=== PATIENT | female | born 1930 | race Caucasian/White ===

== ENCOUNTER 2019-08-14 22:58 | Inpatient (IN) ==
[2019-08-14] MEDS ORDERED: IOPAMIDOL 100 ML BOTTLE IV ONE (22:59)
[2019-08-14] MEDS ORDERED: ONDANSETRON 4 MG/2 ML VIAL IV ONE (23:27)
[2019-08-14] MEDS ORDERED: LACTATED RINGERS 1,000 ML IV ONE (23:27)
[2019-08-14] MEDS ORDERED: HYDROmorphone 2 MG/ML VIAL IV PRN (23:27)
[2019-08-15 00:32] LABS: Basophils # (Auto) 0.1 K/mcL (0.0-0.3); Basophils % (Auto) 0.7 % (0.0-2.0); Eosinophils # (Auto) 0.2 K/mcL (0.0-0.7); Eosinophils % (Auto) 1.8 % (0.0-7.0); Hematocrit 39.1 % (36.0-48.0); Lymphocytes # (Auto) 1.6 K/mcL (1.5-4.8); Lymphocytes % (Auto) 14.8 % (15.5-49.0); Mean Cell Volume 91.1 fL (80.0-100.0); Mean Corpuscular HGB Conc 33.4 g/dL (31.0-36.0); Mean Platelet Volume 9.9 fL (7.4-10.4); Monocytes # (Auto) 0.8 K/mcL (0.1-0.9); Monocytes % (Auto) 7.7 % (1.0-12.0); Platelet Count 189 K/mcL (140-440); RBC 4.29 M/mcL (4.00-5.20); Red Cell Distribution Width 13.9 % (11.5-14.5); WBC 10.5 K/mcL (4.5-11.0)
[2019-08-15 00:52] LABS: ALT/SGPT 8 U/l (0-40); AST/SGOT 16 U/l (0-37); Albumin 3.9 gm/dL (3.2-5.2); Albumin/Globulin Ratio 1.2 (1.0-2.3); Alkaline Phosphatase 77 U/L (39-117); Bilirubin,Total 0.3 mg/dL (0.0-1.0); Blood Urea Nitrogen 22 mg/dl (8-23); Calcium 9.5 mg/dl (8.6-10.4); Carbon Dioxide 22 mmol/L (22-30); Chloride 106 mmol/L (96-108); Globulin 3.2 gm/dL (2.2-3.7); Glomerular Filtration Rate 66; Glucose 232 mg/dL (70-105)
[2019-08-15] MEDS ORDERED: ONDANSETRON 4 MG/2 ML VIAL IV ONE (02:40)
[2019-08-15 03:02] LABS: Appearance,Urine CLEAR; Bilirubin,Urine NEG (NEG); Color,Urine YELLOW; Culture Indicated,Urine NO; Glucose,Urine (UA) NEGATIVE (NEG); Ketones,Urine 5/TR mg/dL (NEG); Leukocyte Esterase,Urine NEG /uL (NEG); Nitrate,Urine NEG (NEG); Protein,Urine NEG (NEG); Specific Gravity,Urine 1.051 (1.000-1.035); Urine Blood NEG mg/dL (<0.03); Urobilinogen,Urine NEG (NEG)
[2019-08-15] MEDS ORDERED: ONDANSETRON 4 MG/2 ML VIAL IV PRN (04:00)
[2019-08-15] MEDS ORDERED: PROMETHAZINE 25 MG/ML VIAL IV PRN (04:00)
[2019-08-15] MEDS ORDERED: PROMETHAZINE 25 MG/ML VIAL ONE (04:10)
[2019-08-15] MEDS: 0.9 % SODIUM CHLORIDE 1,000 ML IV SCH ×3 (04:15→21:09)
--- NOTE | 2019-08-15 06:58 | Emergency Department Note ---
Abdominal Pain HPI - General Chief Complaint: Abdominal Pain Stated Complaint: ABD. PAIN Time Seen by Provider: 08/14/19 23:24 Mode of arrival: ambulatory - History of Present Illness HPI Narrative: This patient has had some mild abdominal pain with some nausea vomiting developed this evening. She has had previous small bowel obstructions due to adhesions. - Related Data Home Medications Medication Instructions Recorded Confirmed aspirin 81 mg tablet,delayed 81 mg PO QDAY tab 05/15/15 08/15/19 release multivitamin,ia-[id number]-qnysvhhb 1 tab PO QDAY tab 06/19/15 08/15/19 vit C 250 mg-E 200 unit-zinc 40 1 tab PO BID 04/29/17 08/15/19 mg-copper 1 li-hcdglr-juwqrt capsule Previous Rx's Medication Instructions Recorded lancets See Dose Instructions .ROUTE 02/27/16 .MEDSUPPLY #100 each blood sugar diagnostic See Dose Instructions .ROUTE 01/11/18 .MEDSUPPLY #100 each sumatriptan succinate 50 mg tablet See Rx Instructions PO .COMPLEX 01/11/19 #20 tab glipizide 5 mg tablet 5 mg PO BID #180 tab 03/22/19 losartan 25 mg tablet 25 mg PO QDAY #90 tab 03/22/19 simvastatin 5 mg tablet 5 mg PO QPM #90 tab 03/22/19 Allergies Allergy/AdvReac Type Severity Reaction Status Date / Time No Known Allergies Allergy none Verified 08/15/19 03:17 Review of Systems All systems ED: reviewed and negative except as stated. 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) Cervical cancer (Chronic) Dizziness (Resolved) Pain of toe (Resolved) Bowel obstruction (Inactive) Fall (Inactive) Past Surgical History (Last Reviewed 07/14/19 @ 10:12 by Mayda Cruz DO) H/O abdominal hysterectomy (Acute) History of cataract surgery (Inactive) History of cholecystectomy (Inactive) History of hernia repair (Inactive) History of hip surgery (Inactive) History of tonsillectomy (Inactive) S/P FLORENTINO-BSO (Inactive) Family History (Last Reviewed 07/14/19 @ 10:12 by Mayda Cruz DO) Mother Malignant neoplasm of uterus Unknown Essential hypertension - Social History Smoking status: Never smoker Physical Exam Limitations: no limitations General appearance: alert Head: atraumatic Eye: Present: normal appearance ENT: Present: normal exam Neck: Present: normal inspection Chest: Present: normal inspection Respiratory: Present: normal lung sounds bilaterally Cardiovascular: Present: regular rate, normal rhythm, normal heart sounds Abdominal: Present: soft, tenderness, normal bowel sounds. Absent: distention, guarding, rebound, rigidity Neurological: Present: alert Psychiatric: Present: normal affect Skin: Present: warm, dry Course Vital Signs Temperature 97.7 F 08/14/19 22:58 Pulse Rate 73 08/14/19 22:58 Respiratory Rate 18 08/14/19 22:58 Blood Pressure 188/84 08/14/19 22:58 Pulse Oximetry (%) 98 08/14/19 22:58 Temperature 97.4 F 08/15/19 04:00 Pulse Rate 89 08/15/19 04:00 Respiratory Rate 20 08/15/19 04:00 Blood Pressure 188/82 08/15/19 04:00 Pulse Oximetry (%) 92 08/15/19 04:00 Abdominal Pain - MDM Narrative Medical decision making narrative: CT scan consistent with a partial small bowel obstruction and so the patient will be admitted to the hospital by Dr. De Paz with an NG tube placed. - Lab Data Lab results reviewed: Yes I reviewed the patient's lab results. Result diagrams: 08/14/19 23:27 08/14/19 23:27 Lab Results 08/14/19 08/14/19 08/15/19 Range/Units 23:27 23:27 02:30 WBC 10.5 (4.5-11.0) K/mcL RBC 4.29 (4.00-5.20) M/mcL Hgb 13.0 (12.0-15.0) g/dL Hct 39.1 (36.0-48.0) % MCV 91.1 (80.0-100.0) fL MCH 30.4 (26.0-34.0) pg MCHC 33.4 (31.0-36.0) g/dL RDW 13.9 (11.5-14.5) % Plt Count 189 (140-440) K/mcL MPV 9.9 (7.4-10.4) fL Gran % 75.0 (38.0-78.0) % Lymph % (Auto) 14.8 L (15.5-49.0) % [place] % (Auto) 7.7 (1.0-12.0) % Eos % (Auto) 1.8 (0.0-7.0) % Baso % (Auto) 0.7 (0.0-2.0) % Gran # 7.9 (1.8-8.0) K/mcL Lymph # (Auto) 1.6 (1.5-4.8) K/mcL [place] # (Auto) 0.8 (0.1-0.9) K/mcL Eos # (Auto) 0.2 (0.0-0.7) K/mcL Baso # (Auto) 0.1 (0.0-0.3) K/mcL Sodium 142 (133-145) mmol/L Potassium 4.2 (3.3-5.1) mmol/L Chloride 106 (96-108) mmol/L Carbon Dioxide 22 (22-30) mmol/L Anion Gap 14.0 (8-16) BUN 22 (8-23) mg/dl Creatinine 0.8 (0.6-1.1) mg/dl GFR Calculation 66 Glucose 232 H (70-105) mg/dL Calcium 9.5 (8.6-10.4) mg/dl Total Bilirubin 0.3 (0.0-1.0) mg/dL AST 16 (0-37) U/l ALT 8 (0-40) U/l Alkaline Phosphatase 77 (39-117) U/L Total Protein 7.1 (5.9-8.4) gm/dL Albumin 3.9 (3.2-5.2) gm/dL Globulin 3.2 (2.2-3.7) gm/dL Albumin/Globulin Ratio 1.2 (1.0-2.3) Lipase 51 (7-60) U/L Urine Color Yellow Urine Appearance Clear Urine pH 5.0 (5.0-9.0) Ur Specific [place] 1.051 H (1.000-1.035) Urine Protein Neg (NEG) mg/dL Urine Glucose (UA) Negative (NEG) mg/dL Urine Ketones 5/tr A (NEG) mg/dL Urine Occult Blood Neg (<0.03) mg/dL Urine Nitrate Neg (NEG) Urine Bilirubin Neg (NEG) mg/dL Urine Urobilinogen Neg (NEG) mg/dL Ur Leukocyte Esterase Neg (NEG) /uL Ur Culture Indicated? No - Radiology Data Radiology results reviewed: Yes I reviewed the patient's radiology results. Disposition Pt seen by TRANSFUSION NURSE/PA only: No Clinical Impression: Small bowel obstruction Disposition: Xfer As Inpt ([facility]) Condition: Undetermined
--- NOTE | 2019-08-15 08:06 | Cat Scan Report ---
History: Diffuse abdominal pain with nausea and vomiting, prior history of cervical cancer TECHNIQUE: The abdomen and pelvis were imaged following intravenous but no oral contrast from the diaphragm to the symphysis pubis. Sagittal and coronal reformats were created. Radiation exposure was limited using dose reduction technology. FINDINGS: There are a few thin bands of discoid atelectasis or scar in both lung bases. Moderate amount calcified plaque is present in the coronary arteries. Heart size is within normal limits. There is a large retrocardiac hiatus hernia with an air-fluid level. The liver and spleen are normal in size and homogeneous. There is mild dilatation of both intra and extrahepatic bile ducts. Proximal common bile duct measures 10 mm and above the ampulla it measures 6 mm. There is no evidence of a stone or mass in or adjacent to the distal common bile duct. There are clips in the gallbladder fossa. There is atrophy of the pancreas. Along the posterior aspect of the body the pancreas near the neck there is a lobulated cyst which measures 6 x 11 mm. No solid components are seen. This is either two adjacent cysts or a bilobed cyst. It has benign features. Pancreatic duct is nondilated and no solid mass is seen in the pancreas. The adrenals are normal. The kidneys are normal in size shape and contour. There are calcified plaques in the renal arteries. No kidney stone is seen and there is no hydronephrosis. There is moderate amount of calcified plaque in the abdominal aorta and iliac arteries. The aorta is normal in caliber. There are multiple loops of fluid-filled small bowel in the midabdomen and upper pelvis. They measure up to 3.2 cm in greatest dimension. The mid and distal ileum are decompressed. There is an ill-defined transition point adjacent to the anterior peritoneal surface in the mid abdomen. This is site where patient had a prior ventral hernia repair. I suspect there is an adhesion causing a low-grade small bowel obstruction. There is no reoccurrence of the hernia. The colon is decompressed. Uterus and ovaries have been resected and there are clips in the lower pelvis. No pelvic mass or adenopathy are present. A trace amount of ascites is present deep in the pelvis. Bone windows show no lytic or blastic metastasis. There are degenerative changes in the thoracic spine with the greatest degeneration at L4-5. Patient has a right metal hip prosthesis. Urinary bladder is decompressed. IMPRESSION: Partial small bowel obstruction which may be due to adhesions where the small bowel abuts the mesh in the anterior abdominal wall. Large hiatus hernia Dilated bile ducts. This may be a reservoir effect following prior cholecystectomy or stricture at the ampulla. Interpreted and Authenticated by: Arie Irizarry 08/15/19
--- NOTE | 2019-08-15 08:08 | XRay Report ---
HISTORY: Nasogastric tube insertion for small bowel obstruction FINDINGS: There is nasogastric tube which passes through the large hiatus hernia into the body of the stomach. There still a moderate amount of gas within the stomach. Small bowel does not appear distended. However, most of the small bowel was fluid-filled on the preceding CT scan. There is contrast within the collecting systems in both kidneys and bladder following the preceding CT scan. IMPRESSION: Improved gastric distention following nasogastric tube insertion Interpreted and Authenticated by: Arie Irizarry 08/15/19
[2019-08-15] MEDS: INSULIN LISPRO 1 UNIT/0.01 ML UNIT SQ SCH ×4 (09:05→23:35)
[2019-08-15] MEDS ORDERED: DIATRIZOATE MEGLU/DIATRIZO SOD 30 ML BOTTLE PO ONE (11:15)
--- NOTE | 2019-08-15 11:29 | XRay Report ---
HISTORY: Small bowel obstruction FINDINGS: Patient was given 660 mL of Gastrografin which have been diluted 50% with water. This was administered through the indwelling nasogastric tube. Images were acquired 10 minutes and 30 minutes following the Gastrografin. After this fluoroscopy was performed using one minute three seconds of fluoroscopy time. The contrast passed rapidly through the stomach and small intestine. By 45 minutes the contrast had reached the proximal descending colon. The small intestine is normal in caliber and there is normal peristalsis. There is no evidence of mass or inflammatory change. No transition point is seen. The small bowel is smaller in caliber today than it was on the CT scan performed yesterday. IMPRESSION: Resolved small bowel obstruction Interpreted and Authenticated by: Arie Irizarry 08/15/19
[2019-08-15] MEDS ORDERED: INSULIN LISPRO 1 UNIT/0.01 ML UNIT SQ SCH (12:00)
[2019-08-15] MEDS: METOCLOPRAMIDE 10 MG/2 ML VIAL IV SCH ×3 (12:47→23:31)
--- NOTE | 2019-08-15 12:53 | General Surg History&Physical ---
History of Present Illness Patient information: Note initiated : 08/15/19 at 12:52 pm Service Date, if different from initiated Date: [] Patient: Pat Spangler a 89 y/o F admitted on 08/15/19 for ABD. PAIN. Chief Complaint: [] HPI: Ms. Spangler is a 89 year old F admitted with a partial bowel obstruction. The patient gives a history of having onset of crampy abdominal pain across her upper abdomen about 19/12/29 last evening. This was followed by bloating with nausea and vomiting. She was seen in the emergency room where CT scan suggests partial midgut obstruction. Nasogastric tube was inserted and she was admitted. The patient gives a history of having a similar episode in 199905/06/2013. She was hospitalized 5 days in 2012. She will be observed and will have small bowel follow-through. Review of Systems - Constitutional weight gain, no fatigue - EENT Nose, mouth and throat: other (decreased vision due to macular edema) - Breasts no change in shape, no mass, no skin changes - Cardiovascular no chest pain at rest, no dyspnea, no palpatations, no rapid heart rate - Respiratory no cough, no dyspnea, no dyspnea on exertion, no wheezing, no chest congestion - Gastrointestinal abdominal pain, nausea, vomiting - Genitourinary Genitourinary: no nocturia, no urinary incontinence - Musculoskeletal abnormal gait, arthralgias, back pain, stiffness - Integumentary no pruritus, no rash - Neurological no confusion, no convulsions, no dizziness, no headache(s) - Psychiatric no anxiety, no depression - Endocrine no fatigue - Hematologic/Lymphatic no easy bleeding, no easy bruising, no lymphadenopathy - Allergic/Immunologic no tongue swelling, no throat swelling, no itchy eyes, no uticaria, no wheezing Past History Past medical history: Diabetes mellitus type 2 Hypertension History of pulmonary embolus status post IVC filter 2009 Morbid obesity History of partial small bowel obstruction 2 Past surgical history: Right inguinal hernia repair IVC filter placement Cholecystectomy Right total hip arthroplasty Total abdominal hysterectomy with bilateral salpingo-oophorectomy Past family history: Uterine cancer Hypertension Past social history: Never smoker Occasional alcohol use Denies drug use Medications and Allergies Home Medications Medication Instructions Recorded Confirmed Type aspirin 81 mg tablet,delayed 81 mg PO QDAY tab 05/15/15 08/15/19 History release multivitamin,uj-qnsw-hdwdrplc 1 tab PO QDAY tab 06/19/15 08/15/19 History lancets See Dose Instructions .ROUTE 02/27/16 07/14/19 Rx .MEDSUPPLY #100 each vit C 250 mg-E 200 unit-zinc 40 1 tab PO BID 04/29/17 08/15/19 History mg-copper 1 ni-qdyebf-qspkqa capsule blood sugar diagnostic See Dose Instructions .ROUTE 01/11/18 07/14/19 Rx .MEDSUPPLY #100 each sumatriptan succinate 50 mg tablet See Rx Instructions PO .COMPLEX 01/11/19 08/15/19 Rx #20 tab glipizide 5 mg tablet 5 mg PO BID #180 tab 03/22/19 08/15/19 Rx losartan 25 mg tablet 25 mg PO QDAY #90 tab 03/22/19 08/15/19 Rx simvastatin 5 mg tablet 5 mg PO QPM #90 tab 03/22/19 08/15/19 Rx Allergies Allergy/AdvReac Type Severity Reaction Status Date / Time No Known Allergies Allergy none Verified 08/15/19 03:17 Exam Temp Pulse Resp BP Pulse Ox 98.2 F 67 18 148/58 95 08/15/19 12:00 08/15/19 12:00 08/15/19 12:00 08/15/19 12:00 08/15/19 12:00 - General physical appearance well developed, well nourished, no distress, obese - Eyes PERRL, normal ocular movement - ENT normal pinna, normal nares, normal mucosa, no congestion, decreased hearing - Head Head exam IM: Present: atraumatic, normal inspection, normocephalic - Neck no masses, no bruits, trachea midline, no lymphadenopathy, no venous distension - Cardiovascular Cardiovascular exam IM: Present: normal rate and rhythm, RRR, +S1, +S2. Absent: JVD, tachycardia - Respiratory normal expansion, normal respiratory effort, clear to auscultation - Abdomen Abdomen: Present: soft, non tender, bowel sounds, surgical scars (healed surg ical scars ; mild distention; good active bowel sounds; no tenderness to palpation) Hernia: Present: none - Genitourinary Present: normal external genitalia - Integumentary Present: no rash, no growths, no abnormal pigmentation - Neurologic Present: normal coordination, normal sensation - Musculoskeletal Present: normal gait, normal posture, other (bilateral lower extremity stasis edema) - Psychiatric Present: oriented to time, oriented to person, oriented to place, speech is normal, memory intact Assessment and Plan (1) Small bowel obstruction Small bowel follow-through will be scheduled. Metoclopramide 5 mg IV every 6 hours Serial abdominal x-rays until contrast passes through large intestine Status: Acute (2) Hypertension, essential Resume home medication when patient is able to take by mouth Supplement with intravenous antihypertensive if needed Status: Chronic (3) Diabetes mellitus, type II Every 6 Accu-Cheks Medium sliding scale Humalog as needed per protocol Status: Chronic Qualifiers: Diabetes mellitus complication status: with circulatory complication Diabetes mellitus complication detail: with other circulatory complications Qualified Code(s): E11.59 - Type 2 diabetes mellitus with other circulatory complications
[2019-08-15] MEDS: POLYETHYLENE GLYCOL 3350 17 GM PACKET PO SCH ×2 (13:16→18:10)
[2019-08-15] MEDS: LOSARTAN 25 MG TABLET PO SCH (18:12)
[2019-08-16] MEDS: 0.9 % SODIUM CHLORIDE 1,000 ML IV SCH (04:51)
[2019-08-16] MEDS: METOCLOPRAMIDE 10 MG/2 ML VIAL IV SCH ×2 (05:57→14:55)
[2019-08-16] MEDS: INSULIN LISPRO 1 UNIT/0.01 ML UNIT SQ SCH ×2 (05:59→11:45)
--- NOTE | 2019-08-16 08:28 | XRay Report ---
HISTORY: Follow-up small bowel obstruction FINDINGS: There is retained Gastrografin contrast within the colon from the ascending colon to the rectum. There are several air-fluid levels in nondilated colon. Relatively little air and fluid are present in the small intestine. The small intestine is nondilated. There are one or two small indeterminate air-fluid levels within the small bowel in the midabdomen. No free intra-abdominal air is present. There is no apparent soft tissue mass. There are clips in the midline of the pelvis and in the gallbladder fossa. IMPRESSION: Resolved small bowel obstruction Interpreted and Authenticated by: Arie Irizarry 08/16/19
[2019-08-16] MEDS: LOSARTAN 25 MG TABLET PO SCH (08:55)
--- NOTE | 2019-08-16 14:29 | Discharge Summary ---
Providers - Providers Patient information: Note initiated : 08/16/19 at 2:26 pm Service Date, if different from initiated Date: [] Patient: Pat Spangler 89 y/o F admitted on 08/15/19 for ABD. PAIN. Chief Complaint: [] Date of admission: 08/15/19 Discharge date: 08/16/19 Attending physician: Lucita De Paz Hospitalization Hospital Course: 89-year-old female admitted with partial small bowel obstruction. She had onset of symptoms a few hours prior to admission. She developed a pain across her upper abdomen with recurrent episodes of nausea and vomiting. She was seen in the emergency room where CT scan suggests partial small bowel obstruction. She was started on nasogastric decompression IV hydration. The patient had similar episodes in 2005 2012. After some nasogastric decompression she had a small bowel follow-through. This showed transit of the contrast through the small bowel into the colon after about 30 minutes. Shortly thereafter she had multiple bowel movements. She was given some MiraLAX which precipitated more bowel movements and then started on clear liquids. She tolerated clear liquids and has had a regular diet without difficulty. Her morning x-rays shows full complete transit of the contrast through the small bowel and into the distal colon and rectum. She does not have any dilated bowel. She is asymptomatic at this time and is stable for discharge. Discharge diagnosis: partial small bowel obstruction due to adhesions Secondary discharge diagnosis: Diabetes mellitus type 2 Hypertension Morbid obesity Prior history of pulmonary embolus status post IVC filter Reason for admission: abdominal pain nausea vomiting and partial bowel obstruction Procedures: None Pertinent studies/significant findings: CT of abdomen and pelvis with contrast Small bowel follow-through Complications: none Exam Temp Pulse Resp BP Pulse Ox 98.6 F 61 18 137/65 96 08/16/19 12:00 08/16/19 12:00 08/16/19 12:00 08/16/19 12:08/16/19 12:00 - General physical appearance well developed, well nourished, no distress, obese - Eyes PERRL, normal ocular movement - ENT normal pinna, normal nares, normal mucosa, no hearing loss, no congestion - Head Head exam IM: Present: atraumatic, normocephalic - Neck no masses, no bruits, trachea midline, no lymphadenopathy, no venous distension - Cardiovascular Cardiovascular exam IM: Present: normal rate and rhythm - Respiratory normal expansion, normal respiratory effort, clear to percussion, clear to auscultation - Abdomen Abdomen: Present: soft, non tender, bowel sounds, distended (no distention with good active bowel sounds) Hernia: Present: none - Genitourinary Present: normal external genitalia - Integumentary Present: no rash, no growths, no abnormal pigmentation, other ( stasis edema bilateral lower extremities) - Neurologic Present: normal coordination, normal sensation - Musculoskeletal Present: normal gait, normal posture - Psychiatric Present: oriented to time, oriented to person, oriented to place, speech is normal, memory intact Discharge Plan - Patient/Caregiver Discharge Instructions Activity: increase activity as tolerated Diet: Regular Diet - Follow up Plan Follow up with: Mayda Cruz DO [Primary Care Provider] - Disposition: Home, Self-Care Prognosis: Good Rehab Potential: Good I certify that the patient requires SNF services.: No Overall status at discharge: patient is back to baseline Pending Studies Resuscitation Status Full Code Diet GI Soft/Transitional Start ThuAug 16 1216 Diagnostic Test (Pha) (Accu-Chek) 1 each FS Q6 [facility] Last Admin: 08/16/19 11:44 Dose: 1 each Documented by: Admin: 08/16/19 05:57 Dose: 1 each Documented by: Admin: 08/15/19 23:35 Dose: 1 each Documented by: Admin: 08/15/19 17:03 Dose: 1 each Documented by: Admin: 08/15/19 12:46 Dose: 1 each Documented by: Admin: 08/15/19 09:05 Dose: 1 each Documented by: LIZET Hydromorphone HCl (Dilaudid) 0.5 mg IV Q15MIN PRN PRN Reason: PAIN LEVEL > 6 Last Admin: 08/15/19 00:12 Dose: 0.5 mg Documented by: [email or web address] Sodium Chloride (Sodium Chloride 0.9%) 1,000 mls @ 125 mls/hr IV .Q8H [facility] Last Admin: 08/16/19 04:51 Dose: 125 mls/hr Documented by: Infusion: 08/16/19 04:51 Dose: 125 mls/hr Documented by: Admin: 08/15/19 21:09 Dose: 125 mls/hr Documented by: Infusion: 08/15/19 20:53 Dose: 125 mls/hr Documented by: Admin: 08/15/19 12:53 Dose: 125 mls/hr Documented by: Infusion: 08/15/19 12:15 Dose: 125 mls/hr Documented by: Admin: 08/15/19 04:15 Dose: 125 mls/hr Documented by: VARGHESE Insulin Human Lispro (Humalog) 0 unit SQ Q6 [facility]; Protocol Last Admin: 08/16/19 11:45 Dose: Not Given Documented by: Admin: 08/16/19 05:59 Dose: Not Given Documented by: Admin: 08/15/19 23:35 Dose: Not Given Documented by: Admin: 08/15/19 17:05 Dose: Not Given Documented by: Admin: 08/15/19 12:46 Dose: Not Given Documented by: Admin: 08/15/19 09:05 Dose: 10 units Documented by: LIZET Losartan Potassium (Cozaar) 25 mg PO QDAY [facility] Last Admin: 08/16/19 08:55 Dose: 25 mg Documented by: Admin: 08/15/19 18:12 Dose: Not Given Documented by: LIZET Metoclopramide HCl (Reglan) 5 mg IV Q6 [facility] Last Admin: 08/16/19 05:57 Dose: 5 mg Documented by: Admin: 08/15/19 23:31 Dose: 5 mg Documented by: Admin: 08/15/19 18:09 Dose: 5 mg Documented by: Admin: 08/15/19 12:47 Dose: 5 mg Documented by: LIZET Promethazine HCl (Phenergan) 12.5 mg IV Q4HP PRN PRN Reason: Nausea And Vomiting Last Admin: 08/15/19 04:15 Dose: 12.5 mg Documented by: VARGHESE Shift Summary 08/16/19 05:18 Shift Summary by Vickie Cunningham Slept most of the night; turns self in bed. Up to BSC ad kamlesh; still having loose to liquid stools. Wearing pull-ups for incont. Has been tolerating clear diet well. Hoping to go home today. Initialized on 08/16/19 05:18 - END OF NOTE
== END 2019-08-16 15:30 | disposition home or self-care (01) | DRG 390 ==
LOC: ED 22:58 → MEDSUR 08-15 02:55
PROVIDERS: ADMIT Family Medicine Adult Medicine; ATTEND Family Medicine Adult Medicine